=== PATIENT | female | born 1950 | race Caucasian/White ===

== ENCOUNTER 2017-03-26 13:21 | Outpatient (CLI) | payer MEDICARE | END 2017-03-26 13:22 | disposition home or self-care (01) | LOC: EMS 13:21 | PROVIDERS: ATTEND Surgery | DX: Z03.89 Encounter for observation for other suspected diseases and conditions ruled out (principal) ==

== ENCOUNTER 2017-03-26 13:22 | Emergency (ER) | payer MEDICARE ==
[2017-03-26] MEDS ORDERED: diazePAM INJ 5 MG/ML SYRINGE IVP STA (13:48)
[2017-03-26] MEDS ORDERED: HYDROmorphone 1 MG/ML SYRINGE IVP STA ×2 (13:48→19:13)
--- NOTE | 2017-03-26 13:50 | ED Physician Documentation ---
PD HPI BACK PAIN - Stated complaint Stated Complaint: LOWER BACK INJURY - Chief complaint Chief Complaint: Back Pain - History obtained from History obtained from: Patient, Family - History of Present Illness Timing - onset: Other (This is a 66-year-old woman with history of bilateral hip replacements, and approximately 4 years ago had what sounds like a two- level laminectomy in the lumbar spine by Dr. Meléndez in [place] for again what sounds like spinal stenosis based on her description. The last week and a half without specific injury she's had severe low back pain radiating across the hips and with spasms. She's had some urinary incontinence, although it sounds like that's due to immobility as opposed to dysfunction of the nervous system. She denies any weakness, numbness, or tingling of legs. She tried Vicodin without relief. She did see her primary care physician yesterday for this. Pain does not radiate to the abdomen, it is much worse with motion.) Review of Systems Ten Systems: 10 systems reviewed and negative Constitutional: denies: Fever, Chills Cardiac: denies: Chest pain / pressure, Palpitations Respiratory: denies: Dyspnea, Cough PD PAST MEDICAL HISTORY - Past Medical History Past Medical History: Yes Musculoskeletal: Osteoarthritis - Past Surgical History Past Surgical History: Yes Ortho: Other (back surgery) - Allergies Allergies/Adverse Reactions: Allergies Allergy/AdvReac Type Severity Reaction Status Date / Time No Known Drug Allergies Allergy Verified 03/26/17 14:05 - Social History Does the pt have substance abuse?: No - Family History Family history: reports: Non contributory PD ED PE NORMAL - Vitals Vital signs reviewed: Yes - General General: Alert and oriented X 3, Other (in severe pain with motion) - HEENT HEENT: PERRL, EOMI - Neck Neck: Supple, no meningeal sign, No bony TTP - Cardiac Cardiac: RRR, No murmur - Respiratory Respiratory: No respiratory distress, Clear bilaterally - Abdomen Abdomen: Normal bowel sounds, Soft, Non tender - Back Back: No CVA TTP, No spinal TTP - Extremities Extremities: Other (The patient has equal and normal patellar and Achilles reflexes bilaterally. Normal sensation in all areas of the legs. Patient denies saddle anesthesia. Normal strength in flexion and extension at the ankles, knees and flexion of the hips.) - Neuro Neuro: Alert and oriented X 3, Normal speech - Psych Psych: Normal mood, Normal affect Results - Vitals Vitals: Vital Signs - 24 hr 03/26/17 03/26/17 03/26/17 13:29 15:07 15:13 Temperature 36.0 C L Heart Rate 125 H 120 H 109 H Respiratory 18 16 16 Rate Blood Pressure 141/96 H 121/69 107/69 O2 Saturation 97 99 100 03/26/17 03/26/17 17:27 19:16 Temperature Heart Rate 120 H 121 H Respiratory 15 15 Rate Blood Pressure 140/80 H 146/90 H O2 Saturation 99 96 Oxygen O2 Source Room air - EKG (time done) 1340 Rate: Rate (enter#) (3) Rhythm: Sinus tachycardia [place]: Normal Intervals: Prolonged QT QRS: Low voltage Ischemia: Non specific changes Computer interpretation: Agree with computer - Labs Labs: Laboratory Tests 03/26/17 03/26/17 03/26/17 14:00 14:00 14:00 WBC 11.9 H RBC 3.65 L Hgb 12.2 Hct 36.0 L MCV 98.7 MCH 33.4 H MCHC 33.8 RDW 16.3 H Plt Count 263 MPV 7.8 L Neut # 9.6 H Lymph # 1.0 L Hardeman # 1.2 H Eos # 0.1 Baso # 0.1 Absolute Nucleated RBC 0.00 Nucleated RBCs 0.0 PT 12.5 INR 1.1 Sodium 127 L Potassium 3.9 Chloride 93 L Carbon Dioxide 22 Anion Gap 12.0 BUN 24 H Creatinine 0.6 Estimated GFR (MDRD) 99 Glucose 102 H Calcium 9.4 Total Bilirubin 1.1 H AST 33 ALT 39 Alkaline Phosphatase 88 Total Protein 6.8 Albumin 2.2 L Globulin 4.6 H Albumin/Globulin Ratio 0.5 L Lipase 64 H - Rads (name of study) MRI Lspine Radiology: Discussed with rads (MRI of the lumbar spine with and without contrast demonstrates edema of the L3 and L4 vertebral bodies concerning for discitis and osteomyelitis and there is evidence of the right L3-L4 facets having a septic facet joints and there is an extensive epidural phlegmon from L3 -S1 with a small epidural abscess at L3, there are also degenerative changes.) PD MEDICAL DECISION MAKING - ED course ED course: This is a 66-year-old woman presents with severe low back pain of one a half weeks duration, and is found to surprisingly have evidence of discitis, osteomyelitis, epidural phlegmon an abscess as well as a septic facet joint. Blood cultures were done and I spoke with her neurosurgeon, Dr. Wilmar Meléndez who accepted her in transfer at 520 p.m., no antibiotics for now. Departure - Departure Disposition: 02 Transfer Acute Care Hosp Clinical Impression: Epidural abscess, Osteomyelitis of vertebra of lumbar region Condition: Critical Discharge Date/Time: 03/26/17 20:00
[2017-03-26] MEDS ORDERED: HYDROmorphone 1 MG/ML SYRINGE ONE ×2 (14:01→19:14)
[2017-03-26] MEDS ORDERED: diazePAM INJ 5 MG/ML SYRINGE ONE (14:01)
[2017-03-26 14:19] LABS: BASOPHILS # (AUTO) 0.1 10^3/uL (0.0-0.1); BASOPHILS % (AUTO) 0.4 %; EOSINOPHILS # (AUTO) 0.1 10^3/uL (0.0-0.7); EOSINOPHILS % (AUTO) 0.5 %; HGB - HEMOGLOBIN 12.2 g/dL (12.0-16.0); LYMPHOCYTES % (AUTO) 8.8 %; MEAN CORPUSCULAR HEMOGLOBIN 33.4 pg (27.0-31.0); MEAN CORPUSCULAR HGB CONC 33.8 g/dL (32.0-36.0); MEAN CORPUSCULAR VOLUME 98.7 fL (81.0-99.0); MEAN PLATELET VOLUME 7.8 fL (7.9-10.8); MONOCYTES # (AUTO) 1.2 10^3/uL (0.0-1.0); MONOCYTES % (AUTO) 9.9 %; NEUTROPHILS # (AUTO) 9.6 10^3/uL (1.5-6.6); NEUTROPHILS % (AUTO) 80.4 %; RED BLOOD COUNT 3.65 10^6/uL (4.20-5.40); RED CELL DISTRIBUTION WIDTH 16.3 % (12.0-15.0); UNCORRECTED WHITE BLOOD COUNT 11.9 x10^3/uL; WHITE BLOOD COUNT 11.9 x10^3/uL (4.8-10.8)
[2017-03-26 14:34] LABS: ALBUMIN/GLOBULIN RATIO 0.5 (1.0-2.2); BILIRUBIN,TOTAL 1.1 mg/dL (0.2-1.0); CALCIUM 9.4 mg/dL (8.5-10.3); CREATININE 0.6 mg/dL (0.4-1.0); POTASSIUM 3.9 mmol/L (3.5-5.0); TOTAL PROTEIN 6.8 g/dL (6.7-8.2)
[2017-03-26 14:40] LABS: INR 1.1 (0.8-1.2); PT - PROTHROMBIN TIME 12.5 secs (9.9-12.6)
[2017-03-26] MEDS ORDERED: SODIUM CHLORIDE 0.9% 1,000 ML IV ONE (14:46)
[2017-03-26] MEDS ORDERED: LORazepam 2 MG/ML SYRINGE IVP STA ×2 (15:16→18:30)
[2017-03-26] MEDS ORDERED: LORazepam 2 MG/ML SYRINGE ONE ×2 (15:18→19:51)
[2017-03-26] MEDS ORDERED: GADOBUTROL 7.5 MMOL/7.5 ML VIAL IVP ONE (16:22)
--- NOTE | 2017-03-26 17:15 | MRI Preliminary Report ---
Exam: MRI Lumbar Spine W/WO IMPRESSION: 1. Extensive edema involving the L3 and L4 vertebral bodies as well as the intervening disk, with dif fuse abnormal enhancement of the L3 and L4 vertebral bodies, most consistent with diskitis osteomyeli tis at this level. 2. Abnormal enhancement surrounding the right L3-L4 facet joint and surrounding soft tissues, likely representing septic facet joint. 3. Extensive epidural phlegmon extending from the superior endplate of L3 to superior endplate of S1 (series 1101 image 7), with a small associated epidural abscess is seen at L3 level (series 1101 imag e 6) measuring 10 mm in craniocaudal extent, and a second small epidural abscess at L4 level (series 1101 image 7) measuring 16 mm in craniocaudal extent. 4. L1-L2 level demonstrates mild central canal narrowing. No neuroforaminal narrowing. 5. L2-L3 level demonstrates moderate to severe central canal narrowing. No neuroforaminal narrowing. 6. L3-L4 level demonstrates severe central canal narrowing. Moderate right and mild left neuroforamin al narrowing. 7. L4-L5 level demonstrates moderate central canal narrowing. Moderate right and ursr-se-vwqkehdz lef t neuroforaminal narrowing. 8. L5-S1 level demonstrates moderate to severe central canal narrowing. Moderate to severe right and mild left neuroforaminal narrowing. Likely moderate right lateral recess narrowing with mass effect o n traversing right S1 nerve. CRITICAL RESULT: The findings were discussed with Dr. Wayne on 03/26/2017 17:10 Comment: The following findings are so common in adults without low back pain that while we report th eir presence, they must be interpreted with caution and in the context of the clinical situation. (Re michael Martins et al, Spine 2001) Prevalence of findings in patients without low back pain: Disk degeneration (any evidence): 92% Disk desiccation/T2 signal loss: 83% Disk height loss: 56% Disk bulge: 64% Disk protrusion: 32% Annular tear/high intensity zone: 38% [facility] SITE ID: [id number]
--- NOTE | 2017-03-26 17:18 | MRI Report ---
EXAM: MRI LUMBAR SPINE WITHOUT AND WITH CONTRAST EXAM DATE: 03/26/2017 04:36 PM. CLINICAL HISTORY: Back pain with h/o stenosis and urine incontinence. COMPARISONS: None. TECHNIQUE: Multiplanar, multisequence T1-weighted and fluid-sensitive sequences of the lumbar spine f rom T12 to S1 before and after administration of intravenous contrast. IV contrast: Gadolinium. 7 mL Gadavist FINDINGS: Spinal Cord: The conus terminates at L2. No signal abnormality in the visualized spinal cord. Alignment: Normal. No scoliosis or spondylolisthesis. Bone Marrow: Five blk-ztv-nkgxwiy lumbar vertebral bodies are assumed. The bone marrow is diffusely h eterogeneous which likely represents fatty replacement of the marrow. No evidence of acute fracture. There is extensive edema involving the L3 and L4 vertebral bodies as well as the intervening disk, wi th diffuse abnormal enhancement of the L3 and L4 vertebral bodies, most consistent with diskitis oste omyelitis at this level. Modic type II degenerative endplate changes at L4-L5 and L5-S1 levels. Exten sive abnormal enhancement surrounding the right L3-L4 facet joint and surrounding soft tissues, likel y representing septic facet joint. Disk Levels/Facets: T12-L1: No significant central canal or neuroforaminal narrowing. L1-L2: Mild disk height loss and desiccation. Mild diffuse disk bulge and mild bilateral facet arthro tegan. Mild central canal narrowing. No neuroforaminal narrowing. L2-L3: Moderate disk height loss and desiccation. Moderate diffuse disk fold. Moderate bilateral face t arthropathy. There is also epidural phlegmon extending from the L3-L4 level to this level. This res ults overall in moderate to severe central canal narrowing. No neuroforaminal narrowing. L3-L4: The level with likely diskitis osteomyelitis. Extensive epidural phlegmon, moderate diffuse di sk bulge and moderate to severe bilateral facet arthropathy. Severe central canal narrowing. Moderate right and mild left neuroforaminal narrowing. L4-L5: Extensive disk height loss and desiccation. Moderate diffuse disk bulge and moderate to severe bilateral facet arthropathy. Moderate central canal narrowing. Moderate right and jgxb-ji-lcnxvymb l eft neuroforaminal narrowing. L5-S1: Moderate disk height loss and desiccation. Moderate diffuse disk bulge and moderate to severe right and moderate left facet arthropathy. Moderate to severe central canal narrowing. Moderate to se marcelina right and mild left neuroforaminal narrowing. Likely moderate right lateral recess narrowing wit h mass effect on traversing right S1 nerve. Spinal Canal: There is extensive epidural phlegmon extending from the superior endplate of L3 to supe rior endplate of S1 (series 1101 image 7), with a small associated epidural abscess is seen at L3 lev el (series 1101 image 6) measuring 10 mm in craniocaudal extent, and a second small epidural abscess at L4 level (series 1101 image 7) measuring 16 mm in craniocaudal extent. Musculature: There is mild diffuse atrophy of the paraspinal musculature. Other: The visualized pelvic cavity is unremarkable. IMPRESSION: 1. Extensive edema involving the L3 and L4 vertebral bodies as well as the intervening disk, with dif fuse abnormal enhancement of the L3 and L4 vertebral bodies, most consistent with diskitis osteomyeli tis at this level. 2. Abnormal enhancement surrounding the right L3-L4 facet joint and surrounding soft tissues, likely representing septic facet joint. 3. Extensive epidural phlegmon extending from the superior endplate of L3 to superior endplate of S1 (series 1101 image 7), with a small associated epidural abscess is seen at L3 level (series 1101 imag e 6) measuring 10 mm in craniocaudal extent, and a second small epidural abscess at L4 level (series 1101 image 7) measuring 16 mm in craniocaudal extent. 4. L1-L2 level demonstrates mild central canal narrowing. No neuroforaminal narrowing. 5. L2-L3 level demonstrates moderate to severe central canal narrowing. No neuroforaminal narrowing. 6. L3-L4 level demonstrates severe central canal narrowing. Moderate right and mild left neuroforamin al narrowing. 7. L4-L5 level demonstrates moderate central canal narrowing. Moderate right and iwkp-ni-ctqmgfmf lef t neuroforaminal narrowing. 8. L5-S1 level demonstrates moderate to severe central canal narrowing. Moderate to severe right and mild left neuroforaminal narrowing. Likely moderate right lateral recess narrowing with mass effect o n traversing right S1 nerve. CRITICAL RESULT: The findings were discussed with Dr. Wayne on 03/26/2017 17:10 Comment: The following findings are so common in adults without low back pain that while we report th eir presence, they must be interpreted with caution and in the context of the clinical situation. (Re michael Martins et al, Spine 2001) Prevalence of findings in patients without low back pain: Disk degeneration (any evidence): 92% Disk desiccation/T2 signal loss: 83% Disk height loss: 56% Disk bulge: 64% Disk protrusion: 32% Annular tear/high intensity zone: 38% [facility] Referring Provider Line: [phone] SITE ID: [id number]
[2017-03-26 19:18] VITALS: BP 146/90
== END 2017-03-26 20:00 | disposition short-term general hospital (02) ==
LOC: ED 13:22
DX: G06.1 Intraspinal abscess and granuloma (principal); M46.26 Osteomyelitis of vertebra, lumbar region; M19.90 Unspecified osteoarthritis, unspecified site; Z96.643 Presence of artificial hip joint, bilateral
CPT/HCPCS: 36415; 72158; 80053; 83690; 85025; 85610; 87040; 87077; 87181; 93005; 93010; 96361; 96374; 96375; 96376; 99284; 99285; A9585; J1170; J2060

== ENCOUNTER 2017-03-26 20:04 | Outpatient (CLI) | payer MEDICARE | END 2017-03-26 23:59 | disposition short-term general hospital (02) | LOC: EMS 20:04 | PROVIDERS: ATTEND Surgery | DX: R53.1 Weakness (principal) | CPT/HCPCS: A0170; A0425; A0426 ==

== ENCOUNTER 2017-07-10 12:46 | Outpatient (CLI) | payer MEDICARE ==
[2017-07-10 18:26] LABS: ALBUMIN/GLOBULIN RATIO 0.8 (1.0-2.2); BILIRUBIN,TOTAL 0.7 mg/dL (0.2-1.0); CALCIUM 9.3 mg/dL (8.5-10.3); CREATININE 0.7 mg/dL (0.4-1.0); POTASSIUM 4.4 mmol/L (3.5-5.0); TOTAL PROTEIN 6.9 g/dL (6.7-8.2)
[2017-07-10 18:29] LABS: BASOPHILS % (AUTO) 0.6 %; EOSINOPHILS # (AUTO) 0.2 10^3/uL (0.0-0.7); EOSINOPHILS % (AUTO) 2.7 %; HCT - HEMATOCRIT 34.7 % (37.0-47.0); HGB - HEMOGLOBIN 11.2 g/dL (12.0-16.0); LYMPHOCYTES # (AUTO) 1.8 10^3/uL (1.5-3.5); LYMPHOCYTES % (AUTO) 30.2 %; MEAN CORPUSCULAR HEMOGLOBIN 28.6 pg (27.0-31.0); MEAN CORPUSCULAR HGB CONC 32.3 g/dL (32.0-36.0); MEAN CORPUSCULAR VOLUME 88.5 fL (81.0-99.0); MEAN PLATELET VOLUME 9.2 fL (7.9-10.8); MONOCYTES # (AUTO) 0.6 10^3/uL (0.0-1.0); MONOCYTES % (AUTO) 9.6 %; NEUTROPHILS # (AUTO) 3.3 10^3/uL (1.5-6.6); NEUTROPHILS % (AUTO) 56.9 %; NUCLEATED RED BLOOD CELLS AUTO 0.2 /100WBC; RED BLOOD COUNT 3.92 10^6/uL (4.20-5.40); RED CELL DISTRIBUTION WIDTH 16.5 % (12.0-15.0); UNCORRECTED WHITE BLOOD COUNT 5.9 x10^3/uL; WHITE BLOOD COUNT 5.9 x10^3/uL (4.8-10.8)
== END 2017-07-10 12:47 | disposition home or self-care (01) ==
LOC: LAB.F 12:46
PROVIDERS: ATTEND Physician Assistant Medical
DX: R19.7 Diarrhea, unspecified (principal); Z86.19 Personal history of other infectious and parasitic diseases; Z51.81 Encounter for therapeutic drug level monitoring; D64.9 Anemia, unspecified; G03.9 Meningitis, unspecified; R89.9 Unspecified abnormal finding in specimens from other organs, systems and tissues
CPT/HCPCS: 36415; 80053; 82728; 83540; 84466; 85025; 87493

== ENCOUNTER 2017-11-24 14:15 | Outpatient (CLI) | payer MEDICARE ==
[2017-11-24 17:48] LABS: BASOPHILS % (AUTO) 1.1 %; EOSINOPHILS # (AUTO) 0.2 10^3/uL (0.0-0.7); EOSINOPHILS % (AUTO) 3.6 %; HGB - HEMOGLOBIN 12.6 g/dL (12.0-16.0); LYMPHOCYTES # (AUTO) 1.9 10^3/uL (1.5-3.5); LYMPHOCYTES % (AUTO) 43.6 %; MEAN CORPUSCULAR HEMOGLOBIN 34.6 pg (27.0-31.0); MEAN CORPUSCULAR HGB CONC 33.5 g/dL (32.0-36.0); MEAN CORPUSCULAR VOLUME 103.5 fL (81.0-99.0); MEAN PLATELET VOLUME 7.7 fL (7.9-10.8); MONOCYTES # (AUTO) 0.4 10^3/uL (0.0-1.0); MONOCYTES % (AUTO) 9.2 %; NEUTROPHILS # (AUTO) 1.8 10^3/uL (1.5-6.6); NEUTROPHILS % (AUTO) 42.5 %; PLT - PLATELET COUNT 149 10^3/uL (130-450); RED BLOOD COUNT 3.64 10^6/uL (4.20-5.40); WHITE BLOOD COUNT 4.3 x10^3/uL (4.8-10.8)
[2017-11-24 18:07] LABS: ALBUMIN 3.9 g/dL (3.2-5.5); ALBUMIN/GLOBULIN RATIO 1.2 (1.0-2.2); ALKALINE PHOSPHATASE 71 IU/L (42-121); ALT ALANINE AMINOTRANSFERASE 68 IU/L (10-60); AST ASPARTATE AMINOTRANSFERASE 156 IU/L (10-42); BILIRUBIN,TOTAL 0.6 mg/dL (0.2-1.0); BUN - BLOOD UREA NITROGEN 13 mg/dL (6-20); CALCIUM 8.7 mg/dL (8.5-10.3); CARBON DIOXIDE - CO2 26 mmol/L (21-32); CHLORIDE 102 mmol/L (101-111); CREATININE 0.9 mg/dL (0.4-1.0); GFR - MDRD 62 (>89); GLUCOSE 93 mg/dL (70-100); SODIUM 137 mmol/L (135-145); TOTAL PROTEIN 7.1 g/dL (6.7-8.2)
== END 2017-11-24 14:16 | disposition home or self-care (01) ==
LOC: LAB.F 14:15
PROVIDERS: ATTEND Nurse Practitioner Family
DX: R53.83 Other fatigue (principal)
CPT/HCPCS: 80053; 84443; 85025

== ENCOUNTER 2018-07-21 10:34 | Outpatient (CLI) | payer MEDICARE | END 2018-07-21 10:35 | disposition home or self-care (01) | LOC: LAB.F 10:34 | PROVIDERS: ATTEND Physician Assistant Medical | DX: R79.89 Other specified abnormal findings of blood chemistry (principal) | CPT/HCPCS: 36415; 82728; 83540; 84466 ==

== ENCOUNTER 2018-08-02 15:08 | Outpatient (CLI) | payer MEDICARE ==
--- NOTE | 2018-08-03 09:51 | DEXA Report ---
Reason: ASYMPTOMATIC MENOPAUSAL STATE Procedure Date: 08/02/2018 Accession Number: [id number] / [id number] Procedure: DEX - Dexa Spine and/or Hip CPT Code: FULL RESULT: EXAM: Dexa Spine and/or Hip, Dexa Forearm DATE: 08/02/2018 3:49 PM CLINICAL HISTORY: ASYMPTOMATIC MENOPAUSAL STATE. History of bilateral hip replacements TECHNIQUE: Dual energy x-ray absorptiometry (DXA) was performed on a [email or web address] System. Regions measured are the AP Spine, femoral neck, and if needed forearm. COMPARISON: None. In accordance with the International Society for Clinical Densitometry (ISCD) guidelines, data from previous exams may be reanalyzed using current recommendations and techniques. This is done to allow a more accurate basis for comparison with the current study. FINDINGS: The data for the lumbar spine is as follows: BMD (g/cm/cm) T-SCORE Z-SCORE REGION L1 1.104 -0.2 1.2 L2 1.383 1.5 3.0 L3 1.512 2.6 4.1 L4 1.502 2.5 4.0 TOTAL 1.387 1.7 3.2 NOTE: All evaluable vertebrae are used for classification The data for the hip is not obtained due to bilateral hip replacements. The data for the left forearm is as follows: BMD (g/cm/cm) T-SCORE Z-SCORE REGION 1/3 0.838 -0.4 1.4 IMPRESSION: THE WHO CLASSIFICATION BASED ON THE INTERNATIONAL REFERENCE STANDARD IS NORMAL. THE FRACTURE RISK IS NOT INCREASED. RECOMMENDATION: Patients with diagnosis of osteoporosis or osteopenia should have regular bone mineral density assessment. For those eligible for Medicare, routine testing is allowed once every 2 years. Testing frequency can be increased for patients who have rapidly progressing disease or for those who are receiving medical therapy to restore bone mass. COMMENT: World Health Organization (WHO) definitions for osteoporosis and osteopenia: NORMAL BMD: T-score at -1.0 or higher, fracture risk is low OSTEOPENIA BMD: T-score between -1.0 and -2.5, fracture risk is increased. OSTEOPOROSIS BMD: T-score at -2.5 or lower, fracture risk is high. National Osteoporosis Foundation recommends: 1. Obtain adequate dietary calcium (at least 1200 mg per day) and vitamin D (400-800 international units per day). 2. Participate, as appropriate, in regular weightbearing and muscle-strengthening exercise. 3. Avoid tobacco use and reduce alcohol and caffeine intake. 4. For more detailed information see the website at www.NOF.org.
--- NOTE | 2018-08-03 09:51 | DEXA Report ---
Reason: BILAT HIP REPLACEMENTS Procedure Date: 08/02/2018 Accession Number: [id number] / [id number] Procedure: DEX - Dexa Forearm CPT Code: FULL RESULT: EXAM: Dexa Spine and/or Hip, Dexa Forearm DATE: 08/02/2018 3:49 PM CLINICAL HISTORY: ASYMPTOMATIC MENOPAUSAL STATE. History of bilateral hip replacements TECHNIQUE: Dual energy x-ray absorptiometry (DXA) was performed on a [employer] System. Regions measured are the AP Spine, femoral neck, and if needed forearm. COMPARISON: None. In accordance with the International Society for Clinical Densitometry (ISCD) guidelines, data from previous exams may be reanalyzed using current recommendations and techniques. This is done to allow a more accurate basis for comparison with the current study. FINDINGS: The data for the lumbar spine is as follows: BMD (g/cm/cm) T-SCORE Z-SCORE REGION L1 1.104 -0.2 1.2 L2 1.383 1.5 3.0 L3 1.512 2.6 4.1 L4 1.502 2.5 4.0 TOTAL 1.387 1.7 3.2 NOTE: All evaluable vertebrae are used for classification The data for the hip is not obtained due to bilateral hip replacements. The data for the left forearm is as follows: BMD (g/cm/cm) T-SCORE Z-SCORE REGION 1/3 0.838 -0.4 1.4 IMPRESSION: THE WHO CLASSIFICATION BASED ON THE INTERNATIONAL REFERENCE STANDARD IS NORMAL. THE FRACTURE RISK IS NOT INCREASED. RECOMMENDATION: Patients with diagnosis of osteoporosis or osteopenia should have regular bone mineral density assessment. For those eligible for Medicare, routine testing is allowed once every 2 years. Testing frequency can be increased for patients who have rapidly progressing disease or for those who are receiving medical therapy to restore bone mass. COMMENT: World Health Organization (WHO) definitions for osteoporosis and osteopenia: NORMAL BMD: T-score at -1.0 or higher, fracture risk is low OSTEOPENIA BMD: T-score between -1.0 and -2.5, fracture risk is increased. OSTEOPOROSIS BMD: T-score at -2.5 or lower, fracture risk is high. National Osteoporosis Foundation recommends: 1. Obtain adequate dietary calcium (at least 1200 mg per day) and vitamin D (400-800 international units per day). 2. Participate, as appropriate, in regular weightbearing and muscle-strengthening exercise. 3. Avoid tobacco use and reduce alcohol and caffeine intake. 4. For more detailed information see the website at www.NOF.org.
== END 2018-08-02 15:09 | disposition home or self-care (01) ==
LOC: DI 15:08
PROVIDERS: ATTEND Physician Assistant Medical
DX: Z78.0 Asymptomatic menopausal state (principal)
CPT/HCPCS: 77080; 77081

== ENCOUNTER 2018-08-02 15:10 | Outpatient (CLI) | payer MEDICARE ==
--- NOTE | 2018-08-17 11:47 | Mammography Report ---
Reason: SCREENING MAMMO Procedure Date: 08/02/2018 Accession Number: [id number] / [id number] Procedure: [facility] - Screening Mammo Dig Bilat CPT Code: FULL RESULT: EXAM: Screening Mammo Dig Bilat DATE: 08/02/2018 3:55 PM CLINICAL HISTORY: 68-year-old female for screening. TECHNIQUE: Bilateral CC and MLO views were obtained. COMPARISON: None FINDINGS: The breasts demonstrate scattered fibroglandular densities bilaterally. Typically benign vascular calcifications are noted bilaterally. No suspicious masses, clustered microcalcifications, or regions of architectural distortion are identified. IMPRESSION: Benign findings RECOMMENDATION: Routine annual screening unless otherwise clinically indicated. BIRADS CATEGORY 2: Benign findings STANDARD QUALIFYING STATEMENTS: 1. This examination was not reviewed with the aid of Computer-Aided Detection (CAD). 2. A negative or benign imaging report should not delay biopsy if clinically suspicious findings are present. Consider surgical consultation if warrented. More than 5% of cancers are not identified by imaging. 3. Dense breasts may obscure an underlying neoplasm. 4. This examination was reviewed without the aid of 3D breast imaging (tomosynthesis).
== END 2018-08-02 15:11 | disposition home or self-care (01) ==
LOC: DI 15:10
DX: Z12.31 Encounter for screening mammogram for malignant neoplasm of breast (principal)
CPT/HCPCS: 77067

== ENCOUNTER 2018-08-04 10:19 | Outpatient (CLI) | payer MEDICARE ==
[2018-08-04 18:51] LABS: % IRON SATURATION 50 % (20-50); IRON 120 ug/dL (28-170); TOTAL IRON BINDING CAPACITY 238 ug/dL (250-450); TRANSFERRIN 170 mg/dL (192-382)
== END 2018-08-04 10:20 | disposition home or self-care (01) ==
LOC: LAB.F 10:19
PROVIDERS: ATTEND Physician Assistant Medical
DX: R79.89 Other specified abnormal findings of blood chemistry (principal)
CPT/HCPCS: 36415; 83540; 84466

== ENCOUNTER 2018-08-19 11:04 | Outpatient (CLI) | payer MEDICARE ==
[2018-08-19 17:51] LABS: ALBUMIN 3.9 g/dL (3.2-5.5); ALBUMIN/GLOBULIN RATIO 1.2 (1.0-2.2); BILIRUBIN,TOTAL 1.3 mg/dL (0.2-1.0); CALCIUM 9.4 mg/dL (8.5-10.3); CREATININE 0.9 mg/dL (0.4-1.0); TOTAL PROTEIN 7.2 g/dL (6.7-8.2)
== END 2018-08-19 11:05 | disposition home or self-care (01) ==
LOC: LAB.F 11:04
PROVIDERS: ATTEND Registered Nurse
DX: R60.9 Edema, unspecified (principal)
CPT/HCPCS: 36415; 80053

== ENCOUNTER 2019-07-13 12:51 | Outpatient (CLI) | payer MEDICARE ==
[2019-07-13 18:00] LABS: ALBUMIN 3.5 g/dL (3.2-5.5); BILIRUBIN,TOTAL 1.1 mg/dL (0.2-1.0); CREATININE 0.9 mg/dL (0.4-1.0)
[2019-07-13 18:19] LABS: BASOPHILS % (AUTO) 0.9 %; EOSINOPHILS # (AUTO) 0.1 10^3/uL (0.0-0.7); EOSINOPHILS % (AUTO) 2.4 %; HGB - HEMOGLOBIN 12.9 g/dL (12.0-16.0); LYMPHOCYTES # (AUTO) 1.6 10^3/uL (1.5-3.5); LYMPHOCYTES % (AUTO) 34.6 %; MEAN CORPUSCULAR HEMOGLOBIN 35.6 pg (27.0-31.0); MEAN CORPUSCULAR HGB CONC 32.7 g/dL (32.0-36.0); MEAN CORPUSCULAR VOLUME 108.8 fL (81.0-99.0); MONOCYTES # (AUTO) 0.4 10^3/uL (0.0-1.0); MONOCYTES % (AUTO) 9.6 %; NEUTROPHILS # (AUTO) 2.4 10^3/uL (1.5-6.6); NEUTROPHILS % (AUTO) 52.3 %; RED BLOOD COUNT 3.62 10^6/uL (4.20-5.40); RED CELL DISTRIBUTION WIDTH 11.9 % (12.0-15.0); WHITE BLOOD COUNT 4.6 x10^3/uL (4.8-10.8)
[2019-07-13 19:25] LABS: MEAN PLATELET VOLUME 11.4 fL (7.9-10.8); PLATELET ESTIMATE, MANUAL DECREASED (<130,000) (NORMAL); PLATELET MORPHOLOGY NORMAL APPEARANCE (NORMAL); PLT - PLATELET COUNT 166 10^3/uL (130-450)
== END 2019-07-13 12:52 | disposition home or self-care (01) ==
LOC: LAB.S 12:51
PROVIDERS: ATTEND Physician Assistant Medical
DX: I10 Essential (primary) hypertension (principal); R79.89 Other specified abnormal findings of blood chemistry
CPT/HCPCS: 36415; 80053; 82728; 85025

== ENCOUNTER 2019-08-02 11:00 | Outpatient (CLI) | payer MEDICARE ==
--- NOTE | 2019-08-02 12:52 | Mammography Report ---
Reason: ROUTINE MAMMO Procedure Date: 08/02/2019 Accession Number: [id number] / [id number] Procedure: [facility] - Screening Mammo Dig Bilat CPT Code: FULL RESULT: EXAM: Screening Mammo Dig Bilat DATE: 08/02/2019 11:22 AM CLINICAL HISTORY: Routine screening TECHNIQUE: (B) - Bilateral CC and MLO views were obtained. COMPARISON: 08/02/2018 PARENCHYMAL PATTERN: (A) - The breasts demonstrate scattered fibroglandular densities bilaterally. FINDINGS: Extensive bilateral vascular calcifications present. There is increasing soft tissue asymmetry in the upper inner left breast approximately 3 to 4 cm from the nipple for which spot compression and true lateral views are suggested with ultrasound as needed. In the upper outer right breast 7 to 8 cm from the nipple are increasing pleomorphic calcifications for which magnification views are suggested. IMPRESSION: Incomplete examination. BI-RADS category 0. Right magnification views and left spot compression views with ultrasound if needed. Bilateral true lateral views. RECOMMENDATION: (ADDMU) - Additional views using both Mammography and Ultrasound recommended. BI-RADS CATEGORY: (0) - Incomplete Examination - need additional evaluation. STANDARD QUALIFYING STATEMENTS: 1. This examination was not reviewed with the aid of Computer-Aided Detection (CAD). 2. A negative or benign imaging report should not preclude biopsy if clinically suspicious findings are present. 3. Dense breasts may obscure an underlying neoplasm. 4. This examination was reviewed without the aid of 3D breast imaging (tomosynthesis).
== END 2019-08-02 11:01 | disposition home or self-care (01) ==
LOC: DI.S 11:00
PROVIDERS: ATTEND Physician Assistant Medical
DX: Z12.31 Encounter for screening mammogram for malignant neoplasm of breast (principal)
CPT/HCPCS: 77067

== ENCOUNTER 2019-08-23 12:37 | Outpatient (CLI) | payer MEDICARE ==
--- NOTE | 2019-08-23 16:05 | Mammography Report ---
Reason: ABNORMAL MAMMOGRAM Procedure Date: 08/23/2019 Accession Number: [id number] / [id number] Procedure: [facility] - Diag Special Views Dig Bilat CPT Code: Final Report FULL RESULT: EXAM: Diag Special Views Dig Bilat, Breast Unilateral Limited DATE: 08/23/2019 1:32 PM CLINICAL HISTORY: Recall from recent screening exam for right breast calcifications and anterior left breast asymmetry. TECHNIQUE: (B) - Bilateral CC and ML views were obtained. Targeted left breast ultrasound performed by both the technologist and the radiologist. COMPARISON: 08/02/2019, 08/02/2018 PARENCHYMAL PATTERN: (A) - The breasts demonstrate scattered fibroglandular densities bilaterally. FINDINGS: Right breast: Additional images confirm a 5 mm grouping of linear pleomorphic calcifications corresponding to finding recalled from screening in the 9:00 breast 6 cm from the nipple, seen best on CC projections. No suspicious masses or areas of distortion. Left breast: There are two adjacent 8mm oval asymmetries with circumscribed margins in the anterior 2:00 breast representing finding recalled from screening as circled on the MLO view. Possible correlate circled on the screening CC view medial breast is compressible on additional views, consistent with normal tissue. There are no suspicious calcifications or areas of distortion. Targeted ultrasound of the 2:00 breast is performed by both the technologist and the radiologist. No solid masses or concerning findings. Focally prominent simple duct ectasia corresponds to the mammographic findings. IMPRESSION: Right breast: Indeterminate 6 mm grouping of calcifications 9:00 breast. Suspicious. BI-RADS Category 4. Stereotactic breast biopsy and marker placement is recommended. Biopsy scheduling was facilitated the time of this imaging appointment. Left breast: Finding recalled from screening consistent with focal duct ectasia and normal tissue as detailed. Benign findings. BI-RADS category 2. Recommend return to annual screening mammography. RECOMMENDATION: (BIOPSY) - stereotactic breast biopsy right breast. BI-RADS CATEGORY: (4) - Suspicious. STANDARD QUALIFYING STATEMENTS: 1. This examination was not reviewed with the aid of Computer-Aided Detection (CAD). 2. A negative or benign imaging report should not preclude biopsy if clinically suspicious findings are present. 3. Dense breasts may obscure an underlying neoplasm. 4. This examination was reviewed with the aid of 3D breast imaging (tomosynthesis).
== END 2019-08-23 12:38 | disposition home or self-care (01) ==
LOC: DI 12:37
PROVIDERS: ATTEND Physician Assistant Medical
DX: R92.8 Other abnormal and inconclusive findings on diagnostic imaging of breast (principal); R92.1 Mammographic calcification found on diagnostic imaging of breast
CPT/HCPCS: 76642; 77066

== ENCOUNTER 2019-09-21 13:02 | Outpatient (CLI) | payer MEDICARE ==
[~2019-09-21 13:02] MED LIST: BUFFERED LIDOCAINE 10 ML SYRINGE ONE
--- NOTE | 2019-09-21 15:29 | Mammography Report ---
Reason: ABNORMAL MAMMOGRAM Procedure Date: 09/21/2019 Accession Number: [id number] / [id number] Procedure: [facility] - Stereotactic Core BX RT CPT Code: Final Report FULL RESULT: EXAM: Stereotactic Core BX RT DATE: 09/21/2019 3:16 PM CLINICAL HISTORY: ABNORMAL MAMMOGRAM COMPARISON: None. CLINICAL DATA: Target calcifications measuring up to 1 cm in the 2:00 o'clock axis of the right breast. Informed consent was obtained. The patient was positioned in the mammography machine with biopsy attachment. Targeting imaging was obtained and the lesion was selected. The breast was approached from the cranial aspect. Using standard aseptic technique, 1% buffered lidocaine was injected into the breasts for local anesthesia. A small ashley was made in the skin with a #11 blade. A 9-gauge vacuum-assisted device was advanced into the breasts towards the target and confirmatory imaging was obtained to verify targeting and 16 specimens were obtained. Specimen radiography was performed which demonstrated the presence of calcifications in the sample. A biopsy marker clip was then placed into the biopsy cavity. The biopsy device was subsequently removed from the breast. Hemostasis was achieved. Follow-up mammography was then performed to verify biopsy targeting and clip placement. The mammography showed clip placement within the biopsy cavity at the site of prior calcifications . The wound was dressed and ice applied. The patient was observed for approximately 15 minutes, then discharged from the diagnostic imaging Department in stable condition following instructions on wound care and obtaining biopsy results. The tissue was sent for histologic analysis. IMPRESSION: Right breast calcification biopsy. [facility]
[2019-09-21] MEDS ORDERED: BUFFERED LIDOCAINE 10 ML SYRINGE IU ONE (15:43)
== END 2019-09-21 13:03 | disposition home or self-care (01) ==
LOC: DI 13:02
PROVIDERS: ATTEND Physician Assistant Medical
DX: C50.211 Malignant neoplasm of upper-inner quadrant of right female breast (principal); Z17.0 Estrogen receptor positive status [ER+]
CPT/HCPCS: 19081

== ENCOUNTER 2019-11-15 08:45 | Outpatient (CLI) | payer MEDICARE ==
[2019-11-15] MEDS ORDERED: GADOBUTROL 10 MMOL/10 ML VIAL ONE (09:14)
[2019-11-15 09:24] LABS: CREATININE 0.8 mg/dL (0.4-1.0)
[2019-11-15] MEDS ORDERED: GADOBUTROL 10 MMOL/10 ML VIAL IVP ONE (11:09)
--- NOTE | 2019-11-23 16:22 | MRI Report ---
Reason: RT BREAST CA Procedure Date: 11/15/2019 Accession Number: [id number] / [id number] Procedure: MRI - Breast W/WO Cont CPT Code: 97006 Final Report FULL RESULT: EXAM: BILATERAL BREAST MRI WITHOUT AND WITH CONTRAST WITH CHEST WITHOUT CONTRAST EXAM DATE: 11/15/2019 08:44 AM CLINICAL HISTORY: The patient is a 69 year old female newly diagnosed with right breast cancer (ILCA / DCIS). Pretreatment MRI request to assess for extent of disease. TECHNIQUE: Body Coil: (Limited chest MRI)- Coronal LFOV STIR Dedicated breast coil: Axial - precontrast STIR Axial - postcontrast sequential 1 minute three-dimensional FLASH (x 5) Axial - high-resolution volumetric water stimulation acquisition (VIEWS) CONTRAST USED: 6 cc Gadavist. POSTPROCESSING: Subtraction dynamic/curve analysis and multiplanar reformations with CAD stream Note: The exam is slightly degraded by motion artifact. FINDINGS: Background tissue: There is scattered fibroglandular tissue with minimal background enhancement. Right breast: Post biopsy changes are evident in the upper outer posterior position. There is no mass associated with the microclip. The remainder of the parenchymal pattern is unremarkable. No focus of suspicious mass or non-mass enhancement, distortion or skin thickening. No MRI features of multifocal or multicentric disease. There are no enlarged axillary or internal mammary lymph nodes. Left breast: No focus of suspicious mass or non-mass enhancement, distortion or skin thickening. There are no enlarged axillary or internal mammary lymph nodes. Other: There is an apparent lipoma spanning 5 cm in the superolateral abdominal wall inferior to the right breast. IMPRESSION: RIGHT BREAST The site of biopsy proven malignancy is noted without an associated mass. There is no convincing evidence for multifocal, multicentric or regional metastatic disease. BI-RADs 6. LEFT BREAST No suspicious findings. BI-RADS 1. Note exam limitations due to motion artifact. COMMENT: The literature indicates that a negative dynamic breast MRI has a high sensitivity and specificity for the detection of invasive carcinoma (to a threshold of 5 mm). MRI is not reliably sensitive for detecting ductal carcinoma in situ or large invasive neoplasms with only minimal enhancement (i.e. mucinous carcinoma). Normal-appearing lymph nodes on MRI may contain microscopic tumor. Appropriate clinical mammographic and sonographic followup should be performed if recommended. Negative MRI should not dissuade further evaluation of any suspicious mammographic calcifications and/or worrisome palpable masses.
== END 2019-11-15 08:46 | disposition home or self-care (01) ==
LOC: DI 08:45
PROVIDERS: ATTEND Surgery
DX: C50.411 Malignant neoplasm of upper-outer quadrant of right female breast (principal)
CPT/HCPCS: 36415; 77049; 82565; A9585

== ENCOUNTER 2019-12-02 10:40 | Outpatient (CLI) | payer MEDICARE ==
--- NOTE | 2019-12-02 16:50 | XRAY Report ---
Reason: RT BREAST CA/PRE OP Procedure Date: 12/02/2019 Accession Number: [id number] / [id number] Procedure: XR - Chest 2 View X-Ray CPT Code: 43869 Final Report FULL RESULT: EXAM: CHEST RADIOGRAPHY EXAM DATE: 12/02/2019 10:52 AM. CLINICAL HISTORY: RT BREAST CA/PRE OP. COMPARISON: None. TECHNIQUE: 2 views. FINDINGS: Lungs/Pleura: No focal opacities evident. No pleural effusion. No pneumothorax. Normal volumes. Mediastinum: Heart and mediastinal contours are unremarkable. Other: Cervical spine fusion. DJD spine. IMPRESSION: No active cardiopulmonary disease. RADIA
== END 2019-12-02 10:41 | disposition home or self-care (01) ==
LOC: DI 10:40
PROVIDERS: ATTEND Surgery
DX: Z01.818 Encounter for other preprocedural examination (principal); C50.911 Malignant neoplasm of unspecified site of right female breast; R60.9 Edema, unspecified
CPT/HCPCS: 71046; 93005

== ENCOUNTER 2019-12-05 07:14 | Day surgery (SDC) | payer MEDICARE ==
[2019-12-05] MEDS ORDERED: CEFAZOLIN SODIUM IN 0.9 % NACL 2 GM/100 ML BAG IV ONE (07:37)
[2019-12-05] MEDS ORDERED: BUFFERED LIDOCAINE 10 ML SYRINGE ONE (08:00)
[2019-12-05 08:04] VITALS: BP 92/62
== END 2019-12-05 07:15 | disposition home or self-care (01) ==
LOC: SDS 07:14
PROVIDERS: ATTEND Surgery
DX: Z53.9 Procedure and treatment not carried out, unspecified reason (principal)

== ENCOUNTER 2019-12-16 07:37 | Day surgery (SDC) | payer MEDICARE ==
[2019-12-16] MEDS ORDERED: LACTATED RINGERS 1,000 ML IV ONE ×2 (07:45→13:12)
[2019-12-16] MEDS ORDERED: CEFAZOLIN SODIUM IN 0.9 % NACL 2 GM/100 ML BAG IV ONE (08:04)
--- NOTE | 2019-12-16 11:15 | ANESTHESIA ---
Pre-Anesthesia VS, & Labs - Diagnosis right breast cancer - Procedure right breast lumpectomy with sentinal node Vital Signs: Temp Pulse Resp BP Pulse Ox 36.1 C L 83 16 99/72 100 12/16/19 07:46 12/16/19 07:46 12/16/19 07:46 12/16/19 07:46 12/16/19 07:46 Height 5 ft 4 in Weight (kg) 57.9 kg Body Mass Index 22.4 - NPO >8 hours - Is Patient ?: No Home Medications and Allergies Cyanocobalamin (Vitamin B-12) [Vitamin B-12] 2 tab PO DAILY 08/25/17 Lactobacillus Acidophilus [Probiotic Acidophilus] 1 ea PO DAILY PRN 08/25/17 traZODone [Desyrel] 50 mg PO QPM PRN 08/25/17 Benzonatate [Tessalon Perle] 100 - 200 mg PO TID PRN 11/22/19 diphenhydrAMINE [Benadryl] 25 mg PO QPM PRN 11/22/19 Acetaminophen [Acetaminophen ER] 650 mg PO Q4HR PRN 12/02/19 Biosil 2 cap PO DAILY 12/02/19 Cholecalciferol (Vitamin D3) [Vitamin D3] 2,000 unit PO DAILY 12/02/19 Allergies/Adverse Reactions: Allergies Allergy/AdvReac Type Severity Reaction Status Date / Time No Known Drug Allergies Allergy Verified 11/22/19 16:02 Anes History & Medical History - Anesthetic History Anesthesia Complications: reports: No previous complications Family history of Anesthesia Complications: Denies Family history of Malignant Hyperthermia: Denies - Medical History Cardiovascular: reports: Hypertension, High cholesterol, Deep vein thrombosis, Other Pulmonary: reports: Asthma Gastrointestinal: reports: C.difficile Urinary: reports: Incontinence Musculoskeletal: reports: Osteoarthritis Endocrine/Autoimmune: reports: None Blood Disorders: reports: None Skin: reports: Rosacea Smoking Status: Former smoker - Surgical History General: Colonoscopy Orthopedic: Hip replacement, Spine surgery, Other Exam General: Alert Dental: WNL Mouth Opening: Greater than 4 Fingerbreadths Neck Mobility: Normal Mallampati classification: II Thyromental Distance: greater than 6 cm Respiratory: Lungs clear Cardiovascular: Regular rate, Normal S1, Normal S2 Plan Anesthesia Type: General, Other Block (pecs) Consent for Procedure(s) Verified and Reviewed: Yes Code Status: Attempt Resuscitation ASA classification: 2-Mild systemic disease Is this case an emergency?: No
[2019-12-16] MEDS ORDERED: LIDOCAINE 1%-EPI 1:100000 20 ML MDV ONE (11:21)
[2019-12-16] MEDS ORDERED: BUPIVACAINE 0.5% PF 10 ML VIAL ONE (11:36)
--- NOTE | 2019-12-16 12:53 | OPERATIVE REPORT ---
Operative Report - General Procedure Date: 12/16/19 Planned Procedure: Right breast lumpectomy and sentinel node biopsy Pre-Op Diagnosis: Right breast cancer Procedure Performed: Right breast lumpectomy and sentinel node biopsy Post Op Diagnosis: Right breast cancer - Procedure Note Primary Surgeon: Norman Anesthesia Provider: FRANCISCO J Ulrich Anesthesia Technique: General LMA, Local Pathology: 1. Right breast mass oriented and submitted for specimen xray and then pathology 2. Right axillary sentinel node with 10 target count of 3578 in a background of <2 Estimated Blood Loss (mL): 10 Findings: Lesions centered in the specimen with adequate visual margins Complications: None apparent - Other Other Information/Narrative: After obtaining informed consent, the patient is brought to the operating room and placed in the supine position on the operating table. Following successful induction of general anesthesia, appropriate padding of all bony prominences, and placement of appropriate monitors, the right breast and axilla were prepped and draped in the standard surgical fashion. A timeout was held per scope protocol. All elements of the surgical safety checklist were followed before, during, and after the procedure. Using the neoprobe, the sentinel node was identified in the lower portion of the right axillary packet. The area over this region was anesthetized with local anesthetic and incision was created here and carried down through the skin and subcutaneous tissue to enter the axillary node packet. The sentinel node was confirmed again with the navigator and then carefully dissected free from surrounding structures. All a ferret and each parent lymphatics and vasculature were addressed with hemoclips prior to division. The node was delivered into the field. It had a 10-second target count of greater than 3500 and a background of less than 2. The wound was checked for hemostasis, irrigated with warm water, aspirated free of all fluid particulate matter, and closed in layers with Vicryl Monocryl suture. We continued with the lumpectomy. The wire was noted in the lateral aspect of the right breast. Comparison to post targeting films revealed the lesion to be quite close to the skin. For this reason we elected to make an incision directly around the wire. This was carried through the skin. The wire and underlying tissue were then grasped and the entire area was removed sharply. It was oriented with a short stitch superior, long stitch lateral, and the wire placed anteriorly. It was submitted for specimen x-ray. Dr. Nausch called back in the room reporting the specimen was well centered and appeared to be adequate. The wound was then checked for hemostasis. It was irrigated with warm water and aspirated free of all fluid and particulate matter. Additional local anesthetic was applied to the wound both at the chest wall and breast and at the axillary sites. The right breast incision was then closed in layers and Dermabond was applied to the skin. All sponge, needle, and instrument counts were correct at the conclusion of the case. The patient was allowed awaken from anesthesia without difficulty and taken to the postanesthesia care unit in good condition.
[2019-12-16] MEDS ORDERED: IBUPROFEN 600 MG TABLET PO PRN (12:56)
[2019-12-16] MEDS ORDERED: oxyCODONE 5 MG TABLET PO PRN (12:56)
[2019-12-16] MEDS ORDERED: ACETAMINOPHEN 325 MG TABLET PO PRN (12:56)
[2019-12-16] MEDS ORDERED: ONDANSETRON 4 MG/2 ML VIAL IVP PRN (12:56)
[2019-12-16] MEDS: HYDROmorphone 0.5 MG/0.5 ML SYRINGE ONE ×2 (13:32→13:39)
[2019-12-16] MEDS ORDERED: ACETAMINOPHEN 325 MG TABLET PO ONE (15:17)
[2019-12-16 15:46] VITALS: BP 110/62
== END 2019-12-16 07:38 | disposition home or self-care (01) ==
LOC: SDS 07:37
PROVIDERS: ATTEND Surgery
PROC: 0HBT0ZZ Excision of Right Breast, Open Approach (ICD-10-PCS; principal; 2019-12-16 10:15)
DX: C50.911 Malignant neoplasm of unspecified site of right female breast (principal); I10 Essential (primary) hypertension; Z86.718 Personal history of other venous thrombosis and embolism; Z87.891 Personal history of nicotine dependence
CPT/HCPCS: 19281; 19301; 38500; 76098; 78195; A9270; J0690; J1170; J7120

== ENCOUNTER 2019-12-16 08:38 | Day surgery (SDC) | payer MEDICARE ==
--- NOTE | 2019-12-16 15:30 | Mammography Report ---
Reason: RT BREAST CA Procedure Date: 12/16/2019 Accession Number: [id number] / [id number] Procedure: YUDELKA - Wire Localization RT CPT Code: 79478 Final Report FULL RESULT: EXAM: Wire Localization RT DATE: 12/16/2019 9:40 AM CLINICAL HISTORY: RT BREAST CA COMPARISON: 09/21/2019 through 08/02/2018. CLINICAL DATA: Target biopsy clip in the 9 o'clock axis of the right breast. Informed consent was obtained. The patient was positioned in the mammography machine with biopsy attachment. Targeting imaging was obtained and the biopsy clip was selected, the original calcifications were not readily visible. The breast was approached from the lateral aspect. Using standard aseptic technique, 1% buffered lidocaine was injected into the breasts for local anesthesia. A Kopans needle wire combination was advanced into the breasts towards the target and confirmatory imaging was obtained to verify targeting the wire was deployed. Follow-up imaging was obtained. The mammography showed the targeting wire in excellent position with its sixth portion immediately adjacent to the biopsy clip . The wound was dressed and the wire secured. The patient was transferred to the nuclear medicine department for sentinel node injection. IMPRESSION: Wire localization. RADIA
--- NOTE | 2019-12-16 15:36 | Mammography Report ---
Reason: S/P RIGHT BREAST LUMPECTOMY Procedure Date: 12/16/2019 Accession Number: [id number] / [id number] Procedure: YUDELKA - Breast Specimen Surgical CPT Code: Final Report FULL RESULT: EXAM: Breast Specimen Surgical DATE: 12/16/2019 12:34 PM CLINICAL HISTORY: Biopsy-proven right breast malignancy. TECHNIQUE: Single specimen radiograph in container. COMPARISON: 09/21/2019 through 08/02/2019. FINDINGS: The surgical specimen contains the targeted biopsy clip and localization wire with tissue component measuring 4.4 x 6.4 cm. IMPRESSION: Surgical specimen contains localization wire and biopsy clip. BI-RADS CATEGORY: (6) - Known biopsy/ proven malignancy.
--- NOTE | 2019-12-16 17:03 | Nuclear Medicine Report ---
Reason: RT BREAST CA Procedure Date: 12/16/2019 Accession Number: [id number] / [id number] Procedure: NM - Lymph Node Scintigraphy CPT Code: Final Report FULL RESULT: EXAM: SENTINEL LYMPH NODE RADIOTRACER INJECTION WITH IMAGING EXAM DATE: 12/16/2019 01:19 PM. CLINICAL HISTORY: RT BREAST CA. COMPARISON: None. TECHNIQUE: The injection site of the right breast was cleansed according to protocol. Next, a total of 0.49 mCi Tc-99m sulfur colloid in 1 cc saline was injected into the same site. After appropriate delay, the patient was imaged according to the protocol. FINDINGS: Single sentinel lymph node is visualized 45 minutes following injection towards the axillary tail. The patient tolerated the procedure well. IMPRESSION: 1. Bigelow lymph node injection, without complication. 2. 1 focus in the right axillary tail, compatible with sentinel lymph node. RADIA
[2019-12-16] MEDS ORDERED: BUFFERED LIDOCAINE 10 ML SYRINGE IU ONE ×2 (17:12)
== END 2019-12-16 08:39 | disposition home or self-care (01) ==
LOC: DI 08:38
PROVIDERS: ATTEND Surgery
DX: C50.911 Malignant neoplasm of unspecified site of right female breast (principal)
CPT/HCPCS: 76098; 78195

== ENCOUNTER 2020-06-22 12:18 | Outpatient (CLI) | payer MEDICARE ==
--- NOTE | 2020-06-25 07:21 | DEXA Report ---
PROCEDURE: Dexa Spine and/or Hip INDICATIONS: POSTMENOPAUSAL TECHNIQUE: Dual energy x-ray absorptiometry (DXA) was performed on a [employer] System. Regions measur ed are the AP Spine, femoral neck, and if needed forearm. COMPARISON: 07/22/2018. FINDINGS: Lumbar Spine: Bone Mineral Density 1.401 g/cm/cm,T score 1.8, normal Left forearm: Bone Mineral Density 0.590 g/cm/cm, T score -1.4, osteoporosis (T score greater or equal to -1.0: NORMAL) (T score from -1.1 to -2.4: OSTEOPENIA) (T score less than or equal to -2.5 to: OSTEOPOROSIS) Impression: Osteoporosis. Bone density is unchanged compared to 08/02/2018. Patients with diagnosis of osteoporosis or osteopenia should have regular bone mineral density assess ment. For those eligible for Medicare, routine testing is allowed once every 2 years. Testing frequ ency can be increased for patients who have rapidly progressing disease or for those who are receivin g medical therapy to restore bone mass. Reviewed by: Lilia Flores MD, PhD on 06/22/2020 5:09 PM PDT Approved by: Lilia Flores MD, PhD on 06/22/2020 5:09 PM PDT Station ID: [id number]
== END 2020-06-22 12:19 | disposition home or self-care (01) ==
LOC: DI 12:18
PROVIDERS: ATTEND Internal Medicine Hematology & Oncology
DX: Z13.820 Encounter for screening for osteoporosis (principal); M81.8 Other osteoporosis without current pathological fracture
CPT/HCPCS: 77080; 77081

== ENCOUNTER 2020-06-22 12:20 | Outpatient (CLI) | payer MEDICARE ==
--- NOTE | 2020-06-25 12:07 | Mammography Report ---
BILATERAL DIGITAL DIAGNOSTIC MAMMOGRAM 3D/2D: 06/22/2020 CLINICAL: Short term follow up for bilateral breasts. Personal history of right breast cancer. Comparison is made to exams dated: 12/16/2019 mammogram, 08/02/2019 mammogram, and 08/02/2018 mammogra m - [facility]. There are scattered fibroglandular elements in both breasts. There are benign calcifications in both breasts. There also are benign post operative findings in th e right breast. No significant masses, calcifications, or other findings are seen in either breast. IMPRESSION: BENIGN There is no mammographic evidence of malignancy. A 1 year screening mammogram is recommended. This exam was interpreted at Station ID: [id number]. NOTE: For mammograms, a report in lay terms will be sent to the patient. Approximately 15% of breast malignancies will not be visualized mammographically. In the management of a palpable breast mass, a negative mammogram must not discourage biopsy of a clinically suspicious lesion. Electronically Signed By: Ezekiel griffiths/meseret:06/22/2020 14:41:04 ACR BI-RADS Category 2: Benign Finding(s) 3342F PARENCHYMAL PATTERN: (A) - The breast(s) demonstrate(s) scattered fibroglandular densities. BI-RADS CATEGORY: (2) - 2 RECOMMENDATION: (ANNUAL) - Recommend routine annual screening mammography. [id number] 1 year screening LATERALITY: (B)
== END 2020-06-22 12:21 | disposition home or self-care (01) ==
LOC: DI 12:20
PROVIDERS: ATTEND Internal Medicine Hematology & Oncology
DX: Z08 Encounter for follow-up examination after completed treatment for malignant neoplasm (principal); Z85.3 Personal history of malignant neoplasm of breast; Z13.820 Encounter for screening for osteoporosis; M81.8 Other osteoporosis without current pathological fracture
CPT/HCPCS: 77066; 77080; 77081

== ENCOUNTER 2021-07-03 11:04 | Outpatient (CLI) | payer MEDICARE ==
--- NOTE | 2021-07-04 08:52 | Mammography Report ---
BILATERAL DIGITAL SCREENING MAMMOGRAM 3D/2D: 07/03/2021 CLINICAL: Routine screening. Personal history of right breast cancer. Comparison is made to exams dated: 06/22/2020 mammogram, 12/16/2019 mammogram, 12/16/2019 mammogram, 2019 localization, 11/15/2019 breast MRI, and 09/21/2019 mammogram - [facility]. The re are scattered fibroglandular elements in both breasts. There are benign vascular calcifications in both breasts. There also are benign post operative findi ngs in the right breast. No significant masses, calcifications, or other findings are seen in either breast. There has been no significant interval change. IMPRESSION: BENIGN There is no mammographic evidence of malignancy. A 1 year screening mammogram is recommended. This exam was interpreted at Station ID: [id number]. NOTE: For mammograms, a report in lay terms will be sent to the patient. Approximately 15% of breast malignancies will not be visualized mammographically. In the management of a palpable breast mass, a negative mammogram must not discourage biopsy of a clinically suspicious lesion. Electronically Signed By: Alcira tidwell/meseret:07/03/2021 14:49:20 ACR BI-RADS Category 2: Benign Finding(s) 3342F PARENCHYMAL PATTERN: (A) - The breast(s) demonstrate(s) scattered fibroglandular densities. BI-RADS CATEGORY: (2) - 2 RECOMMENDATION: (ANNUAL) - Recommend routine annual screening mammography. [id number] 1 year screening LATERALITY: (B)
== END 2021-07-03 11:05 | disposition home or self-care (01) ==
LOC: DI 11:04
DX: Z12.31 Encounter for screening mammogram for malignant neoplasm of breast (principal); Z85.3 Personal history of malignant neoplasm of breast

== ENCOUNTER 2023-07-15 11:27 | Outpatient (CLI) | payer MEDICARE ==
--- NOTE | 2023-07-16 11:17 | Mammography Report ---
BILATERAL DIGITAL SCREENING MAMMOGRAM 3D/2D: 07/15/2023 CLINICAL: Routine screening. Personal history of right breast cancer. Comparison is made to exams dated: 07/03/2021 mammogram - [facility], 07/04/2022 [facility] mogram - [facility], 06/22/2020 mammogram, 12/16/2019 mammogram, 12/16/2019 localizati on, and 09/21/2019 mammogram - [facility]. There are scattered areas of fibroglandular density in both breasts (category b / 25%-50% glandular t issue). There are benign vascular calcifications in both breasts. There also are benign post operative findi ngs in the right breast. No significant masses, calcifications, or other findings are seen in either breast. There has been no significant interval change. IMPRESSION: BENIGN There is no mammographic evidence of malignancy. A 1 year screening mammogram is recommended. This exam was interpreted at Station ID: [id number]. NOTE: For mammograms, a report in lay terms will be sent to the patient. Approximately 15% of breast malignancies will not be visualized mammographically. In the management of a palpable breast mass, a negative mammogram must not discourage biopsy of a clinically suspicious lesion. Electronically Signed By: Kiran flowers/meseret:07/15/2023 17:23:56 letter sent: No_Letter ACR BI-RADS Category 2: Benign Finding(s) 3342F PARENCHYMAL PATTERN: (A) - The breast(s) demonstrate(s) scattered fibroglandular densities. BI-RADS CATEGORY: (2) - 2 Mammogram [id number] 1 year screening LATERALITY: (B)
== END 2023-07-15 11:28 | disposition home or self-care (01) ==
LOC: DI 11:27
DX: Z12.31 Encounter for screening mammogram for malignant neoplasm of breast (principal); Z85.3 Personal history of malignant neoplasm of breast

== ENCOUNTER 2023-07-28 10:39 | Outpatient (CLI) | payer MEDICARE ==
[2023-07-28 15:12] LABS: BASOPHILS % (AUTO) 0.8 %; EOSINOPHILS # (AUTO) 0.2 10^3/uL (0.0-0.7); EOSINOPHILS % (AUTO) 4.7 %; HCT - HEMATOCRIT 39.4 % (37.0-47.0); HGB - HEMOGLOBIN 12.7 g/dL (12.0-16.0); LYMPHOCYTES # (AUTO) 1.7 10^3/uL (1.5-3.5); LYMPHOCYTES % (AUTO) 34.4 %; MEAN CORPUSCULAR HEMOGLOBIN 34.7 pg (27.0-31.0); MEAN CORPUSCULAR HGB CONC 32.2 g/dL (32.0-36.0); MEAN CORPUSCULAR VOLUME 107.7 fL (81.0-99.0); MEAN PLATELET VOLUME 9.9 fL (7.9-10.8); MONOCYTES # (AUTO) 0.5 10^3/uL (0.0-1.0); MONOCYTES % (AUTO) 10.7 %; NEUTROPHILS # (AUTO) 2.4 10^3/uL (1.5-6.6); NEUTROPHILS % (AUTO) 49.2 %; PLT - PLATELET COUNT 117 10^3/uL (130-450); RED BLOOD COUNT 3.66 10^6/uL (4.20-5.40); RED CELL DISTRIBUTION WIDTH 11.9 % (12.0-15.0); WHITE BLOOD COUNT 4.9 x10^3/uL (4.8-10.8)
[2023-07-28 15:45] LABS: THYROID STIMULATING HORMONE 2.31 uIU/mL (0.34-5.60)
[2023-07-28 16:31] LABS: ALBUMIN 3.7 g/dL (3.2-5.5); ALBUMIN/GLOBULIN RATIO 1.3 (1.0-2.2); ALKALINE PHOSPHATASE 53 IU/L (42-121); ALT ALANINE AMINOTRANSFERASE 27 IU/L (10-60); AST ASPARTATE AMINOTRANSFERASE 51 IU/L (10-42); BILIRUBIN,TOTAL 0.6 mg/dL (0.2-1.0); BUN - BLOOD UREA NITROGEN 13 mg/dL (6-20); CALCIUM 9.3 mg/dL (8.5-10.3); CARBON DIOXIDE - CO2 27 mmol/L (21-32); CHLORIDE 103 mmol/L (101-111); CHOL/HDL RATIO 1.9 (<4.4); CHOLESTEROL 217 mg/dL; GFR - MDRD 54 (>89); GLUCOSE 96 mg/dL (74-104); HDL CHOLESTEROL 113 mg/dL; LDL CHOLESTEROL,CALCULATED 86 mg/dL; LDL/HDL RATIO 0.8 (<4.4); POTASSIUM 4.1 mmol/L (3.5-4.5); SODIUM 136 mmol/L (135-145); TOTAL PROTEIN 6.5 g/dL (6.4-8.9); TRIGLYCERIDES 89 mg/dL (48-352); VLDL CHOLESTEROL 18 mg/dL
[2023-07-28 20:46] LABS: ESTIMATED AVERAGE GLUCOSE 85 mg/dL (70-100); HEMOGLOBIN A1c% 4.6 % (4.27-6.07)
== END 2023-07-28 10:40 | disposition home or self-care (01) ==
LOC: LAB.S 10:39
PROVIDERS: ATTEND Physician Assistant Medical
DX: R60.9 Edema, unspecified (principal)
CPT/HCPCS: 36415; 80053; 80061; 83036; 83721; 84443; 85025